=== PATIENT | male | born 1970 | race Caucasian/White ===

== ENCOUNTER 2020-07-14 23:02 | Emergency (ER) | payer BC ==
[~2020-07-14] VITALS: Ht 182.9 cm; Wt 93.0 kg
--- NOTE | 2020-07-14 23:21 | PHYS DOC ---
General Adult HPI: HPI: ",, I jammed this hand on a shovel edge...it still really sore... " Patient is a 49 year old male who presents with above hx and complaints of injury to Rt. hand. Patient localizes pain to the fifth right metacarpal area. Has obvious swelling. Does have distal sensation and cap refill equal to left hand. No scissoring when closing hand. Patient right-hand dominant. Patient normally healthy. No history immunosuppression. No history of travel. Review of Systems: Review of Systems: Constitutional: Denies fever or chills Eyes: Denies change in visual acuity HENT: Denies nasal congestion or sore throat Respiratory: Denies cough or shortness of breath Cardiovascular: Denies chest pain or edema GI: Denies abdominal pain, nausea, vomiting, bloody stools or diarrhea : Denies dysuria Musculoskeletal: Complains of right hand injury Integument: Denies rash Neurologic: Denies headache, focal weakness or sensory changes Endocrine: Denies polyuria or polydipsia Lymphatic: Denies swollen glands Psychiatric: Denies depression or anxiety Heart Score: Risk Factors: Risk Factors: DM, Current or recent (<one month) smoker, HTN, HLP, family history of CAD, obesity. Risk Scores: Score 0 - 3: 2.5% MACE over next 6 weeks - Discharge Home Score 4 - 6: 20.3% MACE over next 6 weeks - Admit for Clinical Observation Score 7 - 10: 72.7% MACE over next 6 weeks - Early Invasive Strategies Family History: Family History: Noncontributory Current Medications: Current Meds: See nursing for home meds Allergies: Allergies: No known drug allergies Physical Exam: PE: Constitutional: Well developed, well nourished, no acute distress, non-toxic appearance. [] HENT: Normocephalic, atraumatic, bilateral external ears normal, oropharynx moist, no oral exudates, nose normal. [] Eyes: PERRLA, EOMI, conjunctiva normal, no discharge. [] Neck: Normal range of motion, no tenderness, supple, no stridor. [] Cardiovascular:Heart rate regular rhythm, no murmur [] Lungs & Thorax: Bilateral breath sounds clear to auscultation [] Abdomen: Bowel sounds normal, soft, no tenderness, no masses, no pulsatile masses. [] Skin: Warm, dry, no erythema, no rash. [] Back: No tenderness, no CVA tenderness. [] Extremities: No tenderness, no cyanosis, no clubbing, ROM intact, no edema. [] Except findings in right hand. Neurologic: Alert and oriented X 3, normal motor function, normal sensory function, no focal deficits noted. [] Psychologic: Affect normal, judgement normal, mood normal. [] EKG: EKG: [] Radiology/Procedures: Radiology/Procedures: [][address] [address] IMAGING REPORT Signed PATIENT: IAN CARTER ACCOUNT: [id number] : 1970 LOCATION: ER AGE: 49 SEX: M EXAM STATUS: REG ER ORD. PHYSICIAN: GLADYS BELL MD REASON: injury PROCEDURE: HAND RIGHT 3V EXAM: HAND RIGHT 3V 07/14/2020 11:43 PM CLINICAL INDICATION:Injury COMPARISON:None TECHNIQUE:3 views of the right hand FINDINGS:There is an oblique fracture of the fifth metacarpal shaft with minimal displacement. No other fracture or malalignment. Joint spaces are maintained. Soft tissues normal. IMPRESSION:Minimally displaced oblique fracture of the fifth metacarpal shaft. Electronically signed by: Lizzy Ge MD (07/15/2020 12:24 AM) [id number] DICTATED AND SIGNED BY: LIZZY GE MD DATE: 07/15/20 0024 CC: GLADYS BELL MD; PCP,NO ~ Course & Med Decision Making: Course & Med Decision Making Pertinent Labs and Imaging studies reviewed. (See chart for details) Ice packs as needed. Elevation. Wear splint. Distal neurovascular intact after application of splint. Tylenol and ibuprofen for pain. For marked pain may take Vicoprofen. Follow-up with orthopedics Impression: 1. Right fifth metacarpal fracture [] Dragon Disclaimer: Dragon Disclaimer: This electronic medical record was generated, in whole or in part, using a voice recognition dictation system. Departure Departure: Disposition: 01 HOME/RESIDENCE PRIOR TO ADM Condition: STABLE Referrals: PCP,NO (PCP) Scripts Hydrocodone/Ibuprofen (HYDROCODONE-IBUPROFEN 7.5-200 ) 1 Each Tablet 1 TAB PO PRN Q6HRS PRN for PAIN, #30 TAB 0 Refills Prov: GLADYS BELL MD 07/15/20 [place] Disclaimer This chart was dictated in whole or in part using Voice Recognition software in a busy, high-work load, and often noisy Emergency Department environment. It may contain unintended and wholly unrecognized errors or omissions. GLADYS BELL MD Jul 14, 2020 23:21
[2020-07-15] MEDS ORDERED: HYDR-1179 PO (00:08)
--- NOTE | 2020-07-15 00:27 | RAD ---
EXAM: HAND RIGHT 3V 07/14/2020 11:43 PM CLINICAL INDICATION:Injury COMPARISON:None TECHNIQUE:3 views of the right hand FINDINGS:There is an oblique fracture of the fifth metacarpal shaft with minimal displacement. No other fracture or malalignment. Joint spaces are maintained. Soft tissues normal. IMPRESSION:Minimally displaced oblique fracture of the fifth metacarpal shaft. Electronically signed by: Lizzy Ge MD (07/15/2020 12:24 AM) [id number]
[2020-07-15 01:40] VITALS: BP 111/74
== END 2020-07-15 01:40 | disposition home or self-care (01) ==
LOC: ER 23:02
DX: S62.326A Displaced fracture of shaft of fifth metacarpal bone, right hand, initial encounter for closed fracture (principal); W23.0XXA Caught, crushed, jammed, or pinched between moving objects, initial encounter; Y93.H1 Activity, digging, shoveling and raking; Y92.89 Other specified places as the place of occurrence of the external cause; Y99.8 Other external cause status
CPT/HCPCS: 29125; 73130; 99283

== ENCOUNTER → 2020-08-18 | Outpatient (CLI) | payer BC ==
[~2020-08-18] MED LIST: HYDR-1179 PO
--- NOTE | 2020-08-18 16:29 | RAD ---
EXAM: Right hand, 3 views. HISTORY: Fracture follow-up. COMPARISON: 07/14/2020 FINDINGS: 3 views of the right hand are obtained. There has been slight interval callus formation surrounding a minimally displaced fifth metacarpal fracture. The degree of displacement is unchanged. No new fracture is seen. IMPRESSION: Slight interval healing of a minimally displaced fifth metacarpal fracture. Electronically signed by: Radha Dyer MD (08/18/2020 4:26 PM) [id number]
== END ==
LOC: DXRAD 16:05
PROVIDERS: ATTEND Orthopaedic Surgery
DX: S62.356D Nondisplaced fracture of shaft of fifth metacarpal bone, right hand, subsequent encounter for fracture with routine healing (principal); X58.XXXD Exposure to other specified factors, subsequent encounter
CPT/HCPCS: 73130